=== PATIENT | female | born 1950 | race Caucasian/White ===

== ENCOUNTER → 2019-03-18 | Outpatient (CLI) | payer OTHER, MEDICAID ==
[~2019-03-18] MED LIST: AMITRIPTYLINE100 MG PO; CARISOPRODOL 3350 MG PO; COLACE100 MG PO; IRON325 PO; KEFLEX500 M1 PO; LIPITOR40 MG PO; LOPID600 MG PO; MULTIPLE VITAM1 EAC2 PO; NEURONTIN 300300 M1 PO; NORCO 5-325 TA1 EACH PO; NORVASC10 MG PO; PENICILLIN V P500 MG PO; PRINIVIL40 MG PO; PROTONIX40 M1 PO; PULMICORT0.5 MG/22 INH; REGLAN 5 MG TAB5 MG PO; TESSALON PERLE100 MG PO; TRAMADOL 50 MG50 MG PO; TUMS PO; TUSSIN CF SYRU118 ML PO; ZPAK PO
== END ==
LOC: M.PC 14:10 → M.RAD 14:44
DX: M51.17 Intervertebral disc disorders with radiculopathy, lumbosacral region (principal); M43.17 Spondylolisthesis, lumbosacral region; I70.0 Atherosclerosis of aorta; R10.2 Pelvic and perineal pain

== ENCOUNTER → 2019-03-25 | Outpatient (CLI) | payer OTHER, MEDICAID | END | disposition home or self-care (01) | LOC: M.PC 04:48 | DX: M54.5 Low back pain (principal); Z79.899 Other long term (current) drug therapy ==

== ENCOUNTER → 2019-04-01 | Outpatient (CLI) | payer OTHER, MEDICAID | END | disposition home or self-care (01) | LOC: M.PC 05:19 | DX: M54.5 Low back pain (principal); Z79.899 Other long term (current) drug therapy; Z98.890 Other specified postprocedural states ==

== ENCOUNTER → 2019-06-03 | Outpatient (CLI) | payer OTHER, MEDICAID ==
[~2019-06-03] MED LIST changes: +TYLENOL WITH CO1 TA1 PO
== END ==
LOC: M.PC 05:26 → M.RAD 05:26 → M.PC 10:50
DX: M47.22 Other spondylosis with radiculopathy, cervical region (principal); M25.511 Pain in right shoulder; M50.322 Other cervical disc degeneration at C5-C6 level; I10 Essential (primary) hypertension; E11.9 Type 2 diabetes mellitus without complications; Z87.891 Personal history of nicotine dependence

== ENCOUNTER → 2021-04-06 | Outpatient (CLI) | payer OTHER, MEDICAID | LOC: M.ULTRA 09:11 | PROVIDERS: ATTEND Internal Medicine | DX: K76.89 Other specified diseases of liver (principal); N28.89 Other specified disorders of kidney and ureter; Z90.49 Acquired absence of other specified parts of digestive tract ==

== ENCOUNTER → 2021-05-19 | Outpatient (CLI) | payer OTHER, MEDICAID | LOC: M.CT 13:08 | PROVIDERS: ATTEND Nurse Practitioner Adult Health | DX: N20.0 Calculus of kidney (principal); K44.9 Diaphragmatic hernia without obstruction or gangrene; N32.89 Other specified disorders of bladder ==

== ENCOUNTER → 2021-05-30 | Outpatient (CLI) | payer OTHER, MEDICAID ==
[2021-05-30 13:22] LABS: CALCIUM 8.9 mg/dL (8.5-10.1); POTASSIUM 4.5 mmol/L (3.5-5.1)
== END ==
LOC: M.LAB 05-26 08:49 → M.CT 14:00
PROVIDERS: ATTEND Nurse Practitioner Adult Health
DX: K76.89 Other specified diseases of liver (principal); K57.30 Diverticulosis of large intestine without perforation or abscess without bleeding; I70.8 Atherosclerosis of other arteries; N13.39 Other hydronephrosis; Z90.49 Acquired absence of other specified parts of digestive tract